=== PATIENT | male | born 1950 | race Caucasian/White ===

== ENCOUNTER 2017-11-08 05:04 | Emergency (ER) | payer MEDICAID, MEDICARE ==
[~2017-11-08] VITALS: Ht 175.3 cm; Wt 69.0 kg
[2017-11-08 05:08] VITALS: BP 128/80
[2017-11-08] MEDS ORDERED: LISI-167 PO (05:13)
[2017-11-08] MEDS ORDERED: IBUPROFEN 200 MG TABLET ONE (05:26)
[2017-11-08] MEDS ORDERED: ACETAMINOPHEN 325 MG TABLET ONE (05:26)
[2017-11-08] MEDS ORDERED: IBUPROFEN 200 MG TABLET PO ONE (05:30)
[2017-11-08] MEDS ORDERED: ACETAMINOPHEN 325 MG TABLET PO ONE (05:30)
[2017-11-08] MEDS ORDERED: BACITRACIN ZINC OINT 500U/GM, 0.9 GM ONE (05:38)
== END 2017-11-08 06:45 | disposition home or self-care (01) ==
LOC: ED 05:18
DX: S60.811A Abrasion of right wrist, initial encounter (principal); G89.11 Acute pain due to trauma; I10 Essential (primary) hypertension; W01.0XXA Fall on same level from slipping, tripping and stumbling without subsequent striking against object, initial encounter; Y93.89 Activity, other specified; Y92.89 Other specified places as the place of occurrence of the external cause; Y99.8 Other external cause status
CPT/HCPCS: 29260; 99284